=== PATIENT | female | born 1980 | race Hispanic/Latino ===

== ENCOUNTER 2024-06-10 10:13 | Emergency (ER) | payer OTHER ==
[~2024-06-10] VITALS: Ht 162.6 cm; Wt 69.9 kg
[~2024-06-10 10:13] MED LIST: AMOXICILLIN875 MG PO; [UNRECOGNIZED DRUG - OTHER]
[2024-06-10 10:16] VITALS: TEMP 98.8
[2024-06-10] MEDS: KETOROLAC TROMETHAMINE 30 MG/ML VIAL IM STA (10:51)
[2024-06-10 11:37] LABS: CORONAVIRUS COVID-19 AG NEGATIVE (NEGATIVE); INFLUENZA A AG NEGATIVE (NEGATIVE); INFLUENZA B AG NEGATIVE (NEGATIVE)
[2024-06-10 12:38] VITALS: PULSE 77; RESP 15
[2024-06-10 13:52] VITALS: BP 119/68; PULSE 79; RESP 18; TEMP 97.3; O2SAT 97
== END 2024-06-10 14:53 | disposition home or self-care (01) ==
LOC: ER 10:21
DX: R06.02 Shortness of breath (principal); B34.9 Viral infection, unspecified; R55 Syncope and collapse; M54.2 Cervicalgia; Z11.52 Encounter for screening for COVID-19
CPT/HCPCS: 71046; 87428; 93005; 99283; J1885